=== PATIENT | male | born 1965 | race Caucasian/White ===

== ENCOUNTER 2022-11-13 08:23 | Emergency (ER) | payer MEDICAID ==
[~2022-11-13] VITALS: Ht 167.6 cm; Wt 86.2 kg
[~2022-11-13 08:23] MED LIST: LIDO30AD10 TP; LORA-259 PO
[2022-11-13 08:29] VITALS: BP 123/67; TEMP 97.7; O2SAT 98
== END 2022-11-13 10:06 | disposition home or self-care (01) ==
LOC: ER 08:32
DX: G20 Parkinson's disease (principal); Z79.899 Other long term (current) drug therapy